=== PATIENT | female | born 1960 | race Caucasian/White ===

== ENCOUNTER 2022-06-13 10:10 | Outpatient (CLI) | payer MEDICARE, SELFPAY ==
--- NOTE | ~2022-06-13 | XR_ITS ---
EXAMINATION: XR fl inj knee LT for MR/CT DATE: 06/13/2022 10:47 INDICATION: Left knee pain. TECHNIQUE: A time-out was performed to verify the patient's name, date of , and procedure to b e performed. The procedure including the risks, benefits, and alternatives was discussed with the pat ient. Risks discussed included bleeding and infection. The patient understood the risks and agreed to proceed. The skin overlying the left knee joint was prepped and draped in usual sterile fashion. An esthetic was administered with 1% lidocaine subcutaneously. A 22 G needle was advanced under fluoros copic guidance into the joint. Subsequently, injectate consisting of 30 mL of 1:5 1% lidocaine, and 2:5 Omnipaque 350 was instilled. The needle was removed and the entry site was cleaned and dressed. There were no immediate complications. Fluoroscopy exposure time was 0.0 minutes. The total number o f images was 3. FINDINGS: Real-time fluoroscopy demonstrates the needle and contrast in the left knee joint. IMPRESSION: 1. Successful left knee joint injection of contrast for subsequent CT arthrography. Reviewed, dictated and finalized at location B. IMPRESSION: 1. Successful left knee joint injection of contrast for subsequent CT arthrogra phy.
--- NOTE | ~2022-06-13 | CT_ITS ---
EXAMINATION: CT knee LT w con DATE: 06/13/2022 10:58 INDICATION: Left knee pain. TECHNIQUE: Computed tomography (CT) of the left knee was performed without intravenous contrast after intra-articular injection of contrast (CT arthrogram). Automated exposure control and iterative emily nstruction technique were employed. The dose-length product was 213.81 mGy-cm. COMPARISON: Left knee radiographs 04/26/2022 FINDINGS: Medial compartment: There is a complex tear involving body and posterior horn of medial meniscus. There is shallow partia l-thickness cartilage loss of tibial condyle. There is partial-thickness cartilage loss of femoral co ndyle, deep at the central articular surface. There is full-thickness cartilage loss of the medial as pect of femoral condyle. Lateral compartment: Lateral meniscus is normal. There is shallow partial-thickness cartilage loss of tibial condyle, wors t at the central and medial articular surface. The femoral cartilage is normal. Patellofemoral compartment: There is deep partial thickness cartilage loss of patellar medial facet with small subchondral cysts. There is full-thickness cartilage loss of medial trochlea. Fluid: The procedure is well distended by contrast. There is a moderate-sized Benoit's cyst containing contra st. IMPRESSION: 1. Severe chondrosis of medial and patellofemoral compartments and mild chondrosis of lateral compart ment. 2. Complex tear of medial meniscus. 3. Moderate-sized Benoit's cyst. Reviewed, dictated and finalized at location B. IMPRESSION: 1. Severe chondrosis of medial and patellofemoral compartments and mild chondro sis of lateral compartment. 2. Complex tear of medial meniscus. 3. Moderate-sized Benoit's cyst.
== END 2022-06-13 10:11 ==
LOC: MICIMG 10:12
PROVIDERS: PCP Internal Medicine; Visit Provider Orthopaedic Surgery
DX: M25.562 Pain in left knee (principal); M22.2X2 Patellofemoral disorders, left knee; S83.242A Other tear of medial meniscus, current injury, left knee, initial encounter; M71.22 Synovial cyst of popliteal space [Baker], left knee
CPT/HCPCS: 20610; 73701; 77002; Q9967

== ENCOUNTER 2022-07-09 00:05 | Day surgery (SDC) | payer MEDICARE, SELFPAY ==
[2022-07-03 15:34] VITALS: BMI 26.4
--- NOTE | 2022-07-03 15:49 | PC.NURSE ---
Report to the Outpatient Waiting Room, entrance under the green pavilion located off [facility], at time 0830 on date 07/09/22. Planned Procedure Time: 1030. Time changes happen often and if your time is changed the preop area will call you the afternoon before. - You and your visitor will be asked to self-screen and do not enter if you have any COVID symptoms. - We encourage only one visitor and NO visitors under age 16 are allowed at this time. Your visitor will receive communication by the phone number that is given day of service. - The patient visitor is requested to social distance or may leave the building when not with patient due to restrictions. - A mask is required within the hospital. Patients may have clear liquids (water, carbonated beverages, clear teas, apple juice) until 3 hours prior to surgery with a maximum of 20 ounces. - No food from midnight until time of surgery Take the following medications with a SIP of water the morning of surgery: CARVEDILOL, GABAPENTIN, LEVOTHYROXINE, RANEXA Medications to discontinue per physician: VITAMINS/SUPPLEMENTS Date to take last dose: 07/05/22 Please no make-up, nail malian, hairspray, perfume, deodorant, or body powder the day of surgery. No jewelry (including any body piercings) or valuables the day of surgery, leave them at home. Please take a shower or bath the night before, or the morning of, surgery with an antibacterial soap. Wear comfortable, loose fitting clothing. - Jewelry must be removed prior to entering the operating room. Rings and piercings that are not removed may be cut off. - The hospital will not accept responsibility for valuables. - Please leave all valuables, including medications, at home the day of surgery. If you are going home after surgery, a licensed armor reconnaissance vehicle driver must drive you home. - NO public transportation without another adult. - We recommend that an adult stay with you for 24 hours following discharge. - We also recommend that you do not drive, make important decision, drink alcoholic beverages, or take any drugs that were not prescribed by your health care provider for at least 24 hours after your discharge time. Follow any additional instructions given to you from your surgeon. If you or anyone in your household have experienced Covid symptoms in the past week, please notify your surgeon or the nurse liaison at the phone number below for possible testing. Telephone instructions given to GIANNA AYALA and asked if any additional questions and then verbalized understanding. Patient advised to call surgeon office or pre surgery nurse liaison [phone] if any additional questions.
[2022-07-09] VITALS (9 sets, daily range): BP systolic 110–166; BP diastolic 54–85; PULSE 59–75; RESP 12–16; TEMP 36.2–36.3; O2SAT 97–100
[2022-07-09] MEDS: ACETAMINOPHEN 500 MG TABLET 1000 MG PO (09:40)
[2022-07-09] MEDS: LACTATED RINGERS 1,000 ML 30 ML IV CONT (09:40)
--- NOTE | 2022-07-09 09:45 | WPDHPUPDATE1 ---
History and Physical Update Update Date/Time: 07/09/22 09:45 History and Physical has been reviewed, including an updated exam of the patient. There are NO changes in the patient's condition. Risks, benefits, and alternatives have been discussed and questions answered. Patient agrees to proceed with procedure.
--- NOTE | 2022-07-09 09:45 | WPDANESEPPF ---
Anes - Initial Pre Proc Eval Procedure: Operation Date: 07/09/22 10:30 Proposed Procedures p Left Knee Arthroscopy with Meniscectomy - Milton Alberts MD Date/Time: 07/09/22 09:45 Surgeon: Milton Alberts MD Pre Op Diagnosis: left knee medial meniscal tear Patient Data Age: 62 Gender: F Height: 1.52 m Weight: 61.24 kg Allergies Allergy/AdvReac Type Severity Reaction Status Date / Time No Known Allergies Allergy Mild Verified 07/09/22 09:14 Home Medications Medication Instructions Recorded Confirmed Type aspirin 81 mg tablet,delayed 81 mg PO DAILY 02/08/20 07/09/22 History release (Adult Aspirin Regimen) atorvastatin 40 mg tablet 40 mg PO DAILY 02/08/20 07/09/22 History gabapentin 800 mg tablet 800 mg PO DAILY 02/08/20 07/09/22 History levothyroxine 50 mcg capsule 50 mcg PO DAILY 02/08/20 07/09/22 History metformin 500 mg tablet 500 mg PO TID 02/08/20 07/09/22 History nitroglycerin 0.4 mg sublingual 0.4 mg sublingual Q5M PRN Chest 02/08/20 07/09/22 History tablet Pain spironolactone 50 mg tablet 50 mg PO BID 02/08/20 07/09/22 History carvedilol 6.25 mg tablet 6.25 mg PO BID 07/03/22 07/09/22 History cholecalciferol (vitamin D3) 125 125 mcg PO DAILY 07/03/22 07/09/22 History mcg (5,000 unit) tablet (Vitamin D3) empagliflozin 10 mg tablet 10 mg PO DAILY 07/03/22 07/09/22 History (Jardiance) ezetimibe 10 mg tablet 10 mg PO DAILY 07/03/22 07/09/22 History finerenone 10 mg tablet (Kerendia) 10 mg PO DAILY 07/03/22 07/09/22 History furosemide 20 mg tablet 20 mg PO DAILY PRN Edema 07/03/22 07/09/22 History pantoprazole 40 mg tablet,delayed 40 mg PO QAM 07/03/22 07/09/22 History release ranolazine 500 mg tablet,extended 500 mg PO Q12H 07/03/22 07/09/22 History release,12 hr (Ranexa) valsartan 40 mg tablet 40 mg PO DAILY 07/03/22 07/09/22 History Patient hx anesthesia problems: none Family hx anesthesia problems: none Results Review: All pre-operative results and documents have been reviewed as part of the pre-operative evaluation. [facility] Past Medical History Medical History (Updated 06/21/22 @ 10:59 by Milton Alberts MD) Anxiety Chondrocalcinosis of both knees Congestive cardiac failure Coronary arteriosclerosis Degenerative arthritis of knee, bilateral Depression Diabetes Last A1c 6.7 Hyperlipemia Hypothyroidism Lipoma Neuropathy Osteoarthritis Tear of medial meniscus of left knee Surgical History Surgical History (Updated 07/09/22 @ 09:47 by Jose Angel Munoz DO) AICD (automatic cardioverter/defibrillator) present H/O gastric bypass H/O heart artery stent x8 History of cardiovascular surgery Family History Family History Sibling Family history of malignant neoplasm of breast in first degree relative Mother Family history of congestive heart failure Father Family history of heart disease in male family member before age 55 Social History Social History Smoking packs per day: 4 Smoking cigarettes per day: 80.0 Years smoked: 15 Smoking pack-years: 60.00 Smoking status: Former smoker Tobacco type: cigarettes Smoking end date: 08/26/91 Alcohol intake: current Alcohol use details: 2/MONTH Substance use: current Substance use type: marijuana Living arrangements: with family Gender identity (if verbalized by the patient): Female Spiritual care concerns: No Anes - Eval Final PreProcedure Day of Procedure 07/09/22 09:45 Patient weight: overweight Heart: regular rate and rhythm Lungs: clear to auscultation Airway: Mallampati scale class II and special considerations poor dentition (front loose teeth- patient warned of risk of teeth inadvertantly coming out during LMA/ETT placement) Neurological: alert and oriented Last oral intake: >/= 8 hours ASA classification: IV Emergent: no Anesthetic plan: proceed Ane
[2022-07-09] MEDS: KETOROLAC 15 MG/ML VIAL (*BKC) IV PUSH (10:08)
[2022-07-09] MEDS: ceFAZolin 2 GM/D5W 50 ML 2 GM/50 ML BAG IVPB (10:26)
[2022-07-09] MEDS: LIDOCAINE HCL 1% PF INJ 5 ML VIAL 30 ML INFILTRATE (10:47)
--- NOTE | 2022-07-09 11:20 | W.PM.PROC2 ---
Procedure Note - Detailed Date of Procedure 07/09/22 Pre-op Diagnosis left knee medial meniscal tear Post-op Diagnosis Same Procedure Performed left knee arthroscopy with partial medial meniscectomy Surgeon Milton Alberts MD Anesthesia General Description of Procedure The patient was identified and proper site identified and she was taken to the operating room, transferred to the OR table placing her supine taking care to pad the torso and extremities. After general anesthetic induction and intubation, a nonsterile tourniquet was placed high on the left thigh but was not inflated. The left lower extremity was positioned, prepped and draped in usual sterile fashion. 10 cc of 1% lidocaine was injected into the subcutaneous tissue in the area of the portals at start of the procedure, and an additional 10 at the end. The portals were established and the arthroscopy was carried out. There is a chronic low-grade synovitis in of throughout the knee. Lateral articular meniscal cartilage was in excellent condition. Anterior posterior cruciate ligaments were in continuity. Mild patellofemoral degenerative changes but moderate medial compartment changes extensive grade 2 and three changes over the weight-bearing surface of the medial femoral condyle and medial tibial plateau. The fibrillated cartilage was joint is. There was a parrot-beak type tear of the posterior horn of the medial meniscus it into the midbody. This was debrided back to stable rim with basket forceps and a shaver. Arthrocare Wand was used for intra-articular hemostasis. The knee was flushed with a copious amount of arthroscopic fluid and equipment was removed. Portals were closed with three O nylon suture and a sterile dressing was applied. [] tolerated the procedure well, was awakened, extubated and taken to recovery area in stable condition. There were no known intraoperative complications. Estimated blood loss was negligible; [] received perioperative antibiotics. Estimated Blood Loss 10 Tourniquet Time 0 Drains No Packing No Pathology None sent Complications No immediate complications Condition Stable Disposition PACU
[2022-07-09 11:26] LABS: Glucose Point of Care 146 mg/dl (65-105)
--- NOTE | 2022-07-09 11:41 | SUR.PHASEI ---
1140:Simple mask removed.
[2022-07-09] MEDS: oxyCODONE HCL (*CRX) 5 MG TAB IR PO (12:26)
== END 2022-07-09 13:10 | disposition home or self-care (01) ==
PROVIDERS: PCP Internal Medicine; Visit Provider Orthopaedic Surgery
PROC: (CPT 29870; principal; 2022-07-09 10:30)
DX: M23.322 Other meniscus derangements, posterior horn of medial meniscus, left knee (principal); M65.862 Other synovitis and tenosynovitis, left lower leg; I11.0 Hypertensive heart disease with heart failure; I50.9 Heart failure, unspecified; E11.40 Type 2 diabetes mellitus with diabetic neuropathy, unspecified; I25.10 Atherosclerotic heart disease of native coronary artery without angina pectoris; E78.5 Hyperlipidemia, unspecified; E03.9 Hypothyroidism, unspecified; Z95.5 Presence of coronary angioplasty implant and graft; Z95.810 Presence of automatic (implantable) cardiac defibrillator; Z98.84 Bariatric surgery status; Z87.891 Personal history of nicotine dependence; F12.90 Cannabis use, unspecified, uncomplicated; Z79.82 Long term (current) use of aspirin; Z79.84 Long term (current) use of oral hypoglycemic drugs
CPT/HCPCS: 29881; 82948; A9270; J0690; J1100; J1885; J2250; J2405; J2704; J3010; J7120

== ENCOUNTER 2023-11-27 08:05 | Outpatient (CLI) | payer MEDICARE, SELFPAY ==
--- NOTE | ~2023-11-27 | CT_ITS ---
EXAMINATION: CT knee LT w con DATE: 11/27/2023 09:02 INDICATION: Left knee pain. Meniscus tear. TECHNIQUE: Computed tomography (CT) of the left knee was performed without intravenous contrast after intra-articular injection of contrast (CT arthrogram). Automated exposure control and iterative emily nstruction technique were employed. The dose-length product was 505.50 mGy-cm. COMPARISON: Left knee CT 06/13/2022 FINDINGS: Medial compartment: Bone alignment is normal. No fracture. There is a complex tear of posterior horn of medial meniscus. There is deep partial thickness cartilage loss of tibial condyle involving the central articular surf nakul. There is deep partial thickness cartilage loss of femoral condyle involving the central and post erior articular surface. There are foci of full-thickness cartilage loss involving the central articu lar surface. Lateral compartment: Lateral meniscus is normal. There is shallow partial-thickness cartilage loss of tibial condyle invol ving the central articular surface. Femoral cartilage is normal. Patellofemoral compartment: There is shallow partial-thickness cartilage loss of patellar medial facet. There is full-thickness c artilage loss of central trochlea with intra-articular osteophyte. Fluid: The knee joint is well distended by contrast. There is contrast in a moderate-sized Benoit's cyst. IMPRESSION: 1. Severe chondrosis of medial and patellofemoral compartments and mild chondrosis of lateral compart ment. 2. Complex tear of medial meniscus. 3. Moderate-sized Benoit's cyst. Reviewed, dictated and finalized at location A. IMPRESSION: 1. Severe chondrosis of medial and patellofemoral compartments and mild chondro sis of lateral compartment. 2. Complex tear of medial meniscus. 3. Moderate-sized Benoit's cyst.
--- NOTE | ~2023-11-27 | XR_ITS ---
EXAMINATION: XR fl inj knee LT for MR/CT DATE: 11/27/2023 09:08 INDICATION: Left knee pain. History of left knee surgery. TECHNIQUE: A time-out was performed to verify the patient's name, date of , and procedure to b e performed. The procedure including the risks, benefits, and alternatives was discussed with the pat ient. Risks discussed included bleeding and infection. The patient understood the risks and agreed to proceed. The skin overlying the left joint was prepped and draped in usual sterile fashion. Anesthe tic was administered with 1% lidocaine subcutaneously. A 22 G needle was advanced under fluoroscopic guidance into the joint. Subsequently, injectate consisting of 20 mL of 1:4 1% lidocaine, and 1:2 O mnipaque 240 was instilled. The needle was removed and the entry site was cleaned and dressed. Ther e were no immediate complications. Fluoroscopy exposure time was 0.1 minutes. The total number of conner ges was 1. FINDINGS: Real-time fluoroscopy demonstrates the needle and contrast in the left knee joint. IMPRESSION: 1. Successful left joint injection of contrast for subsequent CT arthrography. Reviewed, dictated and finalized at location A.
== END 2023-11-27 08:06 | disposition home or self-care (01) ==
PROVIDERS: PCP Internal Medicine; Visit Provider Orthopaedic Surgery
DX: S83.282A Other tear of lateral meniscus, current injury, left knee, initial encounter (principal)
CPT/HCPCS: 20610; 73701; 77002; Q9966

== ENCOUNTER 2023-12-24 11:22 | Outpatient (CLI) | payer MEDICARE, SELFPAY ==
--- NOTE | 2023-12-24 11:38 | ECG_ITS ---
SEE SCANNED COPY FOR CONFIRMED REPORT. MTDD
[2023-12-24 12:20] LABS: Anion Gap 1 mmol/L (4-12); Blood Urea Nitrogen 16 mg/dL (7-17); Calcium 9.6 mg/dL (8.4-10.2); Carbon Dioxide 29 mmol/L (22-30); Chloride 105 mmol/L (98-107); Estimated Glomerular Filt Rate 56; Glucose 126 mg/dL (65-110); Potassium 3.9 mmol/L (3.4-5.0); Sodium 135 mmol/L (137-145)
== END 2023-12-24 11:23 | disposition home or self-care (01) ==
LOC: ANHSURGERY 11:26
PROVIDERS: Anesthesiology; PCP Internal Medicine; Visit Provider Orthopaedic Surgery
DX: E78.5 Hyperlipidemia, unspecified (principal); I50.9 Heart failure, unspecified; Z79.899 Other long term (current) drug therapy
CPT/HCPCS: 36415; 80048; 93005

== ENCOUNTER 2023-12-25 01:18 | Day surgery (SDC) | payer MEDICARE, SELFPAY ==
[2023-12-23 09:19] VITALS: BMI 24.4
--- NOTE | 2023-12-23 09:27 | PC.NURSE ---
Report to the Outpatient Waiting Room, entrance under the green pavilion located off [facility], at time _0830_ on date _[id number]_. Planned Procedure Time: _1030_. Time changes happen often and if your time is changed the preop area will call you the afternoon before. - You and your visitor will be asked to self-screen and do not enter if you have any COVID symptoms. - A mask is optional within the hospital at this time. Patients may have clear liquids (water, carbonated beverages, clear teas, apple juice) until 3 hours prior to surgery with a maximum of 20 ounces. - No food from midnight until time of surgery Take the following medications with a SIP of water the morning of surgery: __Carvidilol and Levothyroxine DO NOT STOP ANY OF YOUR OTHER PRESCRIPTION MEDICATIONS PRIOR TO SURGERY ?EXCEPT THE FOLLOWING Medications to discontinue per physician All vitamins Date to take last dose___Stop today. Please no make-up, nail german, hairspray, perfume, deodorant, or body powder the day of surgery. No jewelry (including any body piercings) or valuables the day of surgery, leave them at home. Please take a shower or bath the night before, or the morning of, surgery with an antibacterial soap. Wear comfortable, loose fitting clothing. - Jewelry must be removed prior to entering the operating room. Rings and piercings that are not removed may be cut off. - The hospital will not accept responsibility for valuables. - Please leave all valuables, including medications, at home the day of surgery. If you are going home after surgery, a licensed straddle truck driver must drive you home. - NO public transportation without another adult if you receive anesthesia. - We recommend that an adult stay with you for 24 hours following discharge. - We also recommend that you do not drive, make important decision, drink alcoholic beverages, or take any drugs that were not prescribed by your health care provider for at least 24 hours after your discharge time. Follow any additional instructions given to you from your surgeon. If you or anyone in your household have experienced Covid symptoms in the past week, please notify your surgeon or the nurse liaison at the phone number below for possible testing. Telephone instructions given to _Charisma__and asked if any additional questions and then verbalized understanding. Patient advised to call surgeon office or pre surgery nurse liaison [phone] if any additional questions.
--- NOTE | 2023-12-24 07:53 | PM.IMHP ---
H&P: HPI History of Present Illness Date/Time: 12/24/23 07:53 Chief Complaint: Patient has catching locking left knee. She has failed conservative treatment like to consider arthroscopic intervention for her meniscal tear. Review of Systems Musculoskeletal: Musculoskeletal: Reports arthralgias, Reports joint swelling and Reports stiffness [facility] Past Medical History Medical History Anxiety Chondrocalcinosis of both knees Congestive cardiac failure Coronary arteriosclerosis Degenerative arthritis of knee, bilateral Depression Diabetes Last A1c 6.7 Hyperlipemia Hypothyroidism Lipoma Neuropathy Osteoarthritis Surgical History Surgical History AICD (automatic cardioverter/defibrillator) present H/O gastric bypass H/O heart artery stent x8 History of cardiovascular surgery Tear of medial meniscus of left knee Left knee arthroscopy with partial medial meniscectomy July 09, 2022 Family History Family History Sibling Family history of malignant neoplasm of breast in first degree relative Mother Family history of congestive heart failure Father Family history of heart disease in male family member before age 55 Social History Social History Smoking packs per day: 4 Smoking cigarettes per day: 80.0 Years smoked: 30 Smoking pack-years: 120.00 Smoking status: Former smoker Tobacco type: cigarettes Smoking end date: 11/23/20 Alcohol intake: current Drinks per week: 5 Alcohol use details: 2/MONTH Substance use: current Substance use type: marijuana Other substance usage details: daily for knee pain. Do You Feel Safe in your Home?: Yes Lack of Transportation: No Lack of Food: Never True Current Housing: I Have Housing Concerned About Future Housing: No Difficulty Paying Gas/Electric Bills: YES Difficulty Paying for Meds: YES Currently Unemployed: No Education: High School Diploma/GED Difficulty w/ Childcare or Family Care: No Living arrangements: with family Occupation/Education: unemployed Gender identity (if verbalized by the patient): Female Spiritual care concerns: No Meds Home Medications and Allergies Home Medications Medication Instructions Recorded Confirmed Type aspirin 81 mg tablet,delayed 81 mg PO DAILY 02/08/20 12/23/23 History release (Adult Aspirin Regimen) atorvastatin 40 mg tablet 40 mg PO DAILY 02/08/20 12/23/23 History levothyroxine 50 mcg capsule 50 mcg PO DAILY 02/08/20 12/23/23 History nitroglycerin 0.4 mg sublingual 0.4 mg sublingual Q5M PRN Chest 02/08/20 12/23/23 History tablet Pain spironolactone 50 mg tablet 50 mg PO BID 02/08/20 12/23/23 History carvedilol 6.25 mg tablet 6.25 mg PO BID 07/03/22 12/23/23 History cholecalciferol (vitamin D3) 125 125 mcg PO DAILY 07/03/22 12/23/23 History mcg (5,000 unit) tablet (Vitamin D3) furosemide 20 mg tablet 20 mg PO DAILY PRN Edema 07/03/22 12/23/23 History Allergies Allergy/AdvReac Type Severity Reaction Status Date / Time No Known Allergies Allergy Mild Verified 12/23/23 09:18 Exam Narrative: On exam she is tender medially on the LEFT knee. She has catching locking and pain. Neurologically she is grossly intact. She walks with an antalgic gait. Eyes: General: appearance normal, both eyes and all related structures Neck: Neck: supple Resp: Effort & Inspection: normal respiratory effort Cardio: Rate: regular rate Rhythm: regular rhythm Radiology Reports: Comments: Patient: Charisma Brush : 1960 MR#: [id number] Age: 63 Loc: [facility]? ? ADM Date: 11/27/23Attending Dr: Pako Garcia M.D. Ordering Physician: Pako Garcia MD Date of Service: 11/27/23 Procedure(s): CT knee LT w con Accession Number
[2023-12-25] VITALS (10 sets, daily range): BP systolic 146–177; BP diastolic 57–80; PULSE 49–74; RESP 12–20; TEMP 36.8; O2SAT 96–100; BMI 25.7
--- NOTE | 2023-12-25 06:47 | WPDHPUPDATE1 ---
History and Physical Update Update Date/Time: 12/25/23 06:47 History and Physical has been reviewed, including an updated exam of the patient. There are NO changes in the patient's condition. Risks, benefits, and alternatives have been discussed and questions answered. Patient agrees to proceed with procedure.
[2023-12-25] MEDS: LACTATED RINGERS 1,000 ML 30 ML IV CONT (09:55)
--- NOTE | 2023-12-25 10:03 | WPDANESEPPF ---
Anes - Initial Pre Proc Eval Procedure: Operation Date: 12/25/23 10:30 Proposed Procedures p Left Knee Arthroscopy, Partial Meniscectomy, Proceed As Indicated - Pako Garcia MD Date/Time: 12/25/23 10:03 Surgeon: Pako Garcia MD Pre Op Diagnosis: left medial meniscal tear Patient Data Age: 63 Gender: F Height: 1.52 m Weight: 56.8 kg Allergies Allergy/AdvReac Type Severity Reaction Status Date / Time No Known Allergies Allergy Mild Verified 12/23/23 09:18 Home Medications Medication Instructions Recorded Confirmed Type aspirin 81 mg tablet,delayed 81 mg PO DAILY 02/08/20 12/23/23 History release (Adult Aspirin Regimen) atorvastatin 40 mg tablet 40 mg PO DAILY 02/08/20 12/23/23 History levothyroxine 50 mcg capsule 50 mcg PO DAILY 02/08/20 12/23/23 History nitroglycerin 0.4 mg sublingual 0.4 mg sublingual Q5M PRN Chest 02/08/20 12/23/23 History tablet Pain spironolactone 50 mg tablet 50 mg PO BID 02/08/20 12/23/23 History carvedilol 6.25 mg tablet 6.25 mg PO BID 07/03/22 12/23/23 History cholecalciferol (vitamin D3) 125 125 mcg PO DAILY 07/03/22 12/23/23 History mcg (5,000 unit) tablet (Vitamin D3) furosemide 20 mg tablet 20 mg PO DAILY PRN Edema 07/03/22 12/23/23 History Patient hx anesthesia problems: none Family hx anesthesia problems: none Results Review: All pre-operative results and documents have been reviewed as part of the pre-operative evaluation. [facility] Past Medical History Medical History Anxiety Chondrocalcinosis of both knees Congestive cardiac failure Coronary arteriosclerosis Degenerative arthritis of knee, bilateral Depression Diabetes Last A1c 6.7 Hyperlipemia Hypothyroidism Lipoma Neuropathy Osteoarthritis Surgical History Surgical History AICD (automatic cardioverter/defibrillator) present H/O gastric bypass H/O heart artery stent x8 History of cardiovascular surgery Tear of medial meniscus of left knee Left knee arthroscopy with partial medial meniscectomy July 09, 2022 Family History Family History Sibling Family history of malignant neoplasm of breast in first degree relative Mother Family history of congestive heart failure Father Family history of heart disease in male family member before age 55 Social History Social History Smoking packs per day: 4 Smoking cigarettes per day: 80.0 Years smoked: 30 Smoking pack-years: 120.00 Smoking status: Former smoker Tobacco type: cigarettes Smoking end date: 11/23/20 Alcohol intake: current Drinks per week: 5 Alcohol use details: 2/MONTH Substance use: current Substance use type: marijuana Other substance usage details: daily for knee pain. Do You Feel Safe in your Home?: Yes Lack of Transportation: No Lack of Food: Never True Current Housing: I Have Housing Concerned About Future Housing: No Difficulty Paying Gas/Electric Bills: YES Difficulty Paying for Meds: YES Currently Unemployed: No Education: High School Diploma/GED Difficulty w/ Childcare or Family Care: No Living arrangements: with family Occupation/Education: unemployed Gender identity (if verbalized by the patient): Female Spiritual care concerns: No Anes - Eval Final PreProcedure Day of Procedure 12/25/23 10:03 Patient weight: normal Heart: regular rate and rhythm Lungs: clear to auscultation Airway: Mallampati scale class II Neurological: alert and oriented Last oral intake: >/= 8 hours ASA classification: III Emergent: no Anesthetic plan: proceed Anesthesia type and monitoring: general LMA and standard monitoring Results Review: All pre-operative results and documents have been reviewed as part of the pre-operative evaluation. Inf
[2023-12-25] MEDS: ACETAMINOPHEN 500 MG TABLET 1000 MG PO (10:06)
[2023-12-25 10:15] LABS: Glucose Point of Care 115 mg/dl (65-105)
[2023-12-25] MEDS: ceFAZolin 2 GM/D5W 50 ML 2 GM/50 ML BAG IVPB (10:23)
--- NOTE | 2023-12-25 10:57 | W.PM.PROC2 ---
Procedure Note - Detailed Date of Procedure 12/25/23 Pre-op Diagnosis left medial meniscal tear Post-op Diagnosis Same Procedure Performed Left knee arthroscopy with partial meniscetomy Surgeon Pako Garcia MD Anesthesia General Description of Procedure Patient brought to operating room # 7. An anesthetic was administered. The knee was steriley prepped and draped in the usual manner. Standard portals were used. Superior medial portal was used for the outflow cannula, inferior lateral portal was used for the scope, inferior medial portal was used for the instruments. Arthroscopy was performed, the patellar femoral joint degenerative changes. The medial compartment showed a complex tear. The lateral compartment showed fraying. The ACL was intact. Using baskets and gilbert the meniscal tear was trimmed back to a stable base so the nothing further could be pulled into the joint. Any loose or delaminated fragments were gently trimmed to a stable base. At this point the instruments were withdrawn, sutures placed and patient left the operating room in satisfactory condition. Estimated Blood Loss 20 Drains No Packing No Pathology None sent Complications No immediate complications Condition Stable Disposition PACU [facility] Billing Surgery - Charge Forward: Surgery Billing ([id number] Arthroscopy Partial Menisectomy)
[2023-12-25] MEDS: fentaNYL CITRATE INJ (*CRX) 100 MCG/2 ML VIAL 25 MCG IV PUSH ×4 (11:35→12:15)
[2023-12-25 12:11] LABS: Glucose Point of Care 120 mg/dl (65-105)
== END 2023-12-25 13:55 | disposition home or self-care (01) ==
PROVIDERS: PCP Internal Medicine; Visit Provider Orthopaedic Surgery
PROC: (CPT 29870; principal; 2023-12-25 10:30)
DX: M23.332 Other meniscus derangements, other medial meniscus, left knee (principal); I25.10 Atherosclerotic heart disease of native coronary artery without angina pectoris; I50.9 Heart failure, unspecified; E78.5 Hyperlipidemia, unspecified; E11.40 Type 2 diabetes mellitus with diabetic neuropathy, unspecified; E03.9 Hypothyroidism, unspecified; F41.9 Anxiety disorder, unspecified; F32.A Depression, unspecified; Z95.810 Presence of automatic (implantable) cardiac defibrillator; Z79.82 Long term (current) use of aspirin; Z98.84 Bariatric surgery status; Z95.5 Presence of coronary angioplasty implant and graft; Z87.891 Personal history of nicotine dependence; F12.90 Cannabis use, unspecified, uncomplicated
CPT/HCPCS: 29881; 82948; A9270; J0690; J1100; J2405; J2704; J3010; J7120